=== PATIENT | female | born 1940 | race African-American/Black ===

== ENCOUNTER 2024-06-12 15:48 | Inpatient (IN) | payer MEDICARE ==
[2024-06-12 16:19] LABS: #Basophils Less than 0.03 10x3/uL (0.0-0.2); %Basophils 0.2 % (0.0-1.0); %Eosinophils 0.6 % (0.0-10.0); %Lymphocytes 14.2 % (21.0-51.0); %Monocytes 17.8 % (0.0-10.0); %Neutrophils 66.3 % (42.0-75.0); Hematocrit 26.7 % (36.0-47.0); Hemoglobin 8.8 g/dL (12.0-16.0); Platelet Count 153 10x3/uL (130-400); RBC Distribution Width 15.7 % (11.5-14.5); Red Blood Cell (RBC) Count 2.84 mill/uL (4.20-5.40)
[2024-06-12 16:37] LABS: ALT (SGPT) 32 U/L (8-55); AST (SGOT) 63 U/L (5-34); Albumin 2.3 g/dL (3.4-4.8); Alkaline Phosphatase 109 U/L (40-110); Anion Gap 16 mmol/L (10-20); BUN (Urea Nitrogen) 50 mg/dL (9.8-20.1); Bilirubin, Total 0.6 mg/dL (0.2-1.2); Calc. Creatinine Clearance 0 mL/min (70-130); Carbon Dioxide 18 mmol/L (23-31); Chloride 104 mmol/L (98-107); Estimated GFR 24; Globulin 5.6 g/dL (2.4-3.5); Glucose 136 mg/dL (83-110); Magnesium 2.7 mg/dL (1.6-2.6); Potassium 4.6 mmol/L (3.5-5.1); Protein, Total 7.9 g/dL (5.8-8.1); Sodium 133 mmol/L (136-145)
[2024-06-12 16:40] LABS: Troponin I 0.063 ng/mL (< 0.028)
[2024-06-12] MEDS ORDERED: Sodium Chloride 0.9% 100 ML ONE (18:06)
[2024-06-12] MEDS ORDERED: Piperacillin/Tazobactam 3.375 GM VIAL ONE (18:06)
[2024-06-12] MEDS ORDERED: Senokot S 8.6-50 MG TAB PO PRN (18:58)
[2024-06-12] MEDS ORDERED: traMADol HCl 50 MG TAB PO PRN (18:58)
[2024-06-12] MEDS ORDERED: Acetaminophen 325 MG TAB PO PRN (18:58)
[2024-06-12 19:04] LABS: Lactic Acid 2.65 mmol/L (0.5-2.2)
[2024-06-12 21:21] VITALS: BMI 27.8
[2024-06-12] MEDS: Vancomycin (BATCH) 1.5 GM in Premix 1 BAG IVPB SCH (21:25)
[2024-06-12] MEDS: Metoprolol Tartrate 5 MG (5 mL) VIAL IVP SCH (21:45)
[2024-06-12] MEDS: Metoprolol Tartrate 25 MG TAB PO SCH (23:15)
[2024-06-13] MEDS: Midodrine HCl 5 MG TAB PO SCH ×2 (00:46→11:45)
[2024-06-13] MEDS: Apixaban 2.5 MG TAB PO SCH ×2 (00:47→09:04)
[2024-06-13 03:25] LABS: #Basophils Less than 0.03 10x3/uL (0.0-0.2); #Eosinophils Less than 0.03 10x3/uL (0.0-0.7); %Basophils 0.1 % (0.0-1.0); %Lymphocytes 4.8 % (21.0-51.0); %Monocytes 5.6 % (0.0-10.0); %Neutrophils 88.5 % (42.0-75.0); Hemoglobin 8.5 g/dL (12.0-16.0); Mean Corpuscular HGB CONC 31.5 g/dL (32.0-36.0); Mean Corpuscular Hemoglobin 30.7 pg (27.0-31.0); Mean Corpuscular Volume 97.5 fL (78.0-98.0); Mean Platelet Volume 10.4 fL (7.4-10.4); Platelet Count 145 10x3/uL (130-400); RBC Distribution Width 15.8 % (11.5-14.5); Red Blood Cell (RBC) Count 2.77 mill/uL (4.20-5.40)
[2024-06-13 03:46] LABS: Lactic Acid 3.28 mmol/L (0.5-2.2)
[2024-06-13 03:49] LABS: Anion Gap 18 mmol/L (10-20); BUN (Urea Nitrogen) 52 mg/dL (9.8-20.1); Calc. Creatinine Clearance 20 mL/min (70-130); Calcium 7.9 mg/dL (7.8-10.44); Carbon Dioxide 14 mmol/L (23-31); Chloride 105 mmol/L (98-107); Estimated GFR 21; Glucose 177 mg/dL (83-110); Potassium 4.8 mmol/L (3.5-5.1); Sodium 132 mmol/L (136-145)
[2024-06-13 04:54] LABS: Troponin I 0.061 ng/mL (< 0.028)
[2024-06-13] MEDS: Doxycycline 100 MG in Sodium Chloride 0.9% 100 ML IVPB SCH (05:37)
[2024-06-13] MEDS ORDERED: Pantoprazole 40 MG GRANULES PACKET PO SCH (09:00)
[2024-06-13] MEDS ORDERED: Pantoprazole 40 MG VIAL IVP SCH (09:00)
[2024-06-13] MEDS: Ezetimibe 10 MG TAB PO SCH (09:04)
[2024-06-13] MEDS: Cefepime 1 GM in Sodium Chloride 0.9% 100 ML IVPB SCH (09:04)
[2024-06-13] MEDS: Metoprolol Tartrate 50 MG TAB PO SCH (09:04)
[2024-06-13] MEDS: Docusate 100 MG CAP PO SCH (09:04)
[2024-06-13] MEDS: Pantoprazole DR 40 MG TAB PO SCH (09:04)
[2024-06-13 09:40] LABS: Lactic Acid 2.72 mmol/L (0.5-2.2)
[2024-06-13] MEDS: Lactated Ringer's 500 ML IV SCH (11:45)
[2024-06-13] MEDS: Albumin 25% 25 GM (100 mL) BOT IVPB SCH (11:45)
[2024-06-13] MEDS: Ipratropium/Albuterol 3 ML NEB NEB PRN (13:38)
[2024-06-13] MEDS ORDERED: Vancomycin Dose by Levels Sliding Scale (Wt <71) FS SCH (16:30)
[2024-06-13 18:50] LABS: Vancomycin, Random 15.2 ug/mL (See Comment)
[2024-06-13] MEDS: Vancomycin HCl 500 MG in Sodium Chloride 0.9% 100 ML IVPB SCH (20:00)
[2024-06-13] MEDS: Donepezil HCl 10 MG TAB PO SCH (21:40)
[2024-06-13] MEDS: Atorvastatin Calcium 40 MG TAB PO SCH (21:40)
[2024-06-14] MEDS: Ondansetron PF 4 MG/2 ML Vial IVP PRN (02:31)
[2024-06-14 06:35] LABS: #Basophils Less than 0.03 10x3/uL (0.0-0.2); #Eosinophils Less than 0.03 10x3/uL (0.0-0.7); %Basophils 0.1 % (0.0-1.0); %Lymphocytes 3.1 % (21.0-51.0); %Monocytes 10.1 % (0.0-10.0); %Neutrophils 85.7 % (42.0-75.0); Hematocrit 25.7 % (36.0-47.0); Hemoglobin 8.7 g/dL (12.0-16.0); Mean Corpuscular HGB CONC 33.9 g/dL (32.0-36.0); Mean Corpuscular Hemoglobin 30.4 pg (27.0-31.0); Mean Corpuscular Volume 89.9 fL (78.0-98.0); Platelet Count 162 10x3/uL (130-400); RBC Distribution Width 15.8 % (11.5-14.5); Red Blood Cell (RBC) Count 2.86 mill/uL (4.20-5.40)
[2024-06-14 06:53] LABS: Anion Gap 15 mmol/L (10-20); BUN (Urea Nitrogen) 64 mg/dL (9.8-20.1); Calc. Creatinine Clearance 18 mL/min (70-130); Calcium 8.3 mg/dL (7.8-10.44); Carbon Dioxide 16 mmol/L (23-31); Chloride 105 mmol/L (98-107); Estimated GFR 19; Glucose 109 mg/dL (83-110); Potassium 4.9 mmol/L (3.5-5.1); Sodium 131 mmol/L (136-145)
[2024-06-14] MEDS: Ferrous Sulfate 325 MG TAB PO SCH (09:55)
[2024-06-14 15:49] VITALS: BMI 27.8
[2024-06-14 19:29] LABS: Vancomycin, Trough 16.9 ug/mL
[2024-06-14] MEDS: Vancomycin HCl 250 MG in Sodium Chloride 0.9% 100 ML IV SCH (22:18)
[2024-06-15 04:04] LABS: #Basophils 0.03 10x3/uL (0.0-0.2); %Basophils 0.2 % (0.0-1.0); %Eosinophils 0.2 % (0.0-10.0); %Lymphocytes 9.5 % (21.0-51.0); %Monocytes 19.5 % (0.0-10.0); %Neutrophils 68.4 % (42.0-75.0); Hemoglobin 9.1 g/dL (12.0-16.0); Mean Corpuscular HGB CONC 33.7 g/dL (32.0-36.0); Mean Corpuscular Hemoglobin 30.2 pg (27.0-31.0); Mean Corpuscular Volume 89.7 fL (78.0-98.0); Mean Platelet Volume 10.8 fL (7.4-10.4); Platelet Count 169 10x3/uL (130-400); RBC Distribution Width 15.9 % (11.5-14.5); Red Blood Cell (RBC) Count 3.01 mill/uL (4.20-5.40)
[2024-06-15 04:27] LABS: Anion Gap 15 mmol/L (10-20); BUN (Urea Nitrogen) 79 mg/dL (9.8-20.1); Calc. Creatinine Clearance 17 mL/min (70-130); Calcium 8.2 mg/dL (7.8-10.44); Carbon Dioxide 15 mmol/L (23-31); Chloride 107 mmol/L (98-107); Estimated GFR 17; Glucose 94 mg/dL (83-110); Potassium 4.8 mmol/L (3.5-5.1); Sodium 132 mmol/L (136-145)
[2024-06-15] MEDS: Metoprolol Tartrate 25 MG TAB PO SCH (09:31)
[2024-06-15] MEDS: Sodium Bicarbonate Tab 325 MG TAB PO SCH (15:07)
[2024-06-15] MEDS: Sodium Bicarbonate 150 MEQ in Dextrose 5% in Water 1,000 ML IV SCH (15:07)
[2024-06-15] MEDS: Guaifenesin DM 100-10/5 ML UDCUP PO PRN (17:47)
[2024-06-15 21:00] LABS: Vancomycin, Trough 14.6 ug/mL
[2024-06-16] MEDS: Vancomycin HCl 500 MG in Sodium Chloride 0.9% 100 ML IVPB SCH (02:57)
[2024-06-16] MEDS: Azithromycin 250 MG TAB PO SCH (10:46)
[2024-06-16 18:16] LABS: Anion Gap 16 mmol/L (10-20); BUN (Urea Nitrogen) 85 mg/dL (9.8-20.1); Calc. Creatinine Clearance 18 mL/min (70-130); Calcium 8.3 mg/dL (7.8-10.44); Carbon Dioxide 14 mmol/L (23-31); Chloride 106 mmol/L (98-107); Estimated GFR 18; Glucose 134 mg/dL (83-110); Potassium 5.3 mmol/L (3.5-5.1); Sodium 131 mmol/L (136-145)
[2024-06-16] MEDS: Acetaminophen 325 MG TAB PO SCH (18:23)
[2024-06-16] MEDS: LOKELMA 10 GM PACKET PO SCH (23:40)
[2024-06-17] MEDS: Sodium Bicarbonate 150 MEQ in Dextrose 5% in Water 1,000 ML IV SCH (00:09)
[2024-06-17 05:01] VITALS: BP 129/84; TEMP 97.2
[2024-06-17] MEDS ORDERED: Dextrose 50% Abboject 50 ML SYRINGE ONE (08:06)
[2024-06-17 08:55] LABS: Albumin 2.4 g/dL (3.4-4.8); Anion Gap 28 mmol/L (10-20); BUN (Urea Nitrogen) 88 mg/dL (9.8-20.1); BUN/Creatinine Ratio 30.03; Calc. Creatinine Clearance 15 mL/min (70-130); Calcium 8.6 mg/dL (7.8-10.44); Carbon Dioxide Less than 8 mmol/L (23-31); Chloride 104 mmol/L (98-107); Estimated GFR 15; Glucose 45 mg/dL (83-110); Phosphorus 7.2 mg/dL (2.3-4.7); Potassium 5.7 mmol/L (3.5-5.1); Sodium 133 mmol/L (136-145)
== END 2024-06-17 14:20 | disposition expired | DRG 871 ==
LOC: ERS 15:48 → PCU 18:18
PROVIDERS: ADMIT Student in an Organized Health Care Education/Training Program; ATTEND Internal Medicine
PROC: 3E03329 Introduction of Other Anti-infective into Peripheral Vein, Percutaneous Approach (ICD-10-PCS; principal; 2024-06-12)
PROC: 30233J1 Transfusion of Nonautologous Serum Albumin into Peripheral Vein, Percutaneous Approach (ICD-10-PCS; 2024-06-13)
DX: A41.9 Sepsis, unspecified organism (principal); I21.A1 Myocardial infarction type 2; I50.33 Acute on chronic diastolic (congestive) heart failure; J18.9 Pneumonia, unspecified organism; J96.01 Acute respiratory failure with hypoxia; E87.20 Acidosis, unspecified; N17.9 Acute kidney failure, unspecified; I13.0 Hypertensive heart and chronic kidney disease with heart failure and stage 1 through stage 4 chronic kidney disease, or unspecified chronic kidney disease; E87.1 Hypo-osmolality and hyponatremia; Z51.5 Encounter for palliative care; Z66 Do not resuscitate; J98.01 Acute bronchospasm; Z79.899 Other long term (current) drug therapy; E78.00 Pure hypercholesterolemia, unspecified; M10.9 Gout, unspecified; N18.32 Chronic kidney disease, stage 3b; Z90.710 Acquired absence of both cervix and uterus; M19.90 Unspecified osteoarthritis, unspecified site; Z98.890 Other specified postprocedural states; K21.9 Gastro-esophageal reflux disease without esophagitis; F03.90 Unspecified dementia, unspecified severity, without behavioral disturbance, psychotic disturbance, mood disturbance, and anxiety; D63.1 Anemia in chronic kidney disease; Z79.01 Long term (current) use of anticoagulants; I48.0 Paroxysmal atrial fibrillation; E87.5 Hyperkalemia
CPT/HCPCS: 36415; 36416; 71045; 80048; 80053; 80202; 83605; 83735; 83880; 84484; 85025; 87040; 87149; 87428; 87633; 93005; 93010; 94640; 96374; 97139; J0692; J2405; J2543; J3370; J7070; J7620; J7999; P9047